=== PATIENT | female | born 1960 | race Caucasian/White ===

== ENCOUNTER → 2016-09-12 16:07 | Outpatient (CLI) | payer MEDICAID ==
[2016-06-24 12:18] VITALS: BMI 28.8
[~2016-09-12 16:07] MED LIST: ALTACE5 MG PO; ASPIRIN325 MG PO; BAYER ASPIRIN325 MG PO; BAYER CHEWABLE81 MG PO; GLIPIZIDE10 MG PO; GLUCOPHAGE1000 MG PO; GLUCOPHAGE500 MG PO; GLUCOTROL ER2.5 MG; HYDROCODON-ACE1 EAC7 PO; PLAVIX75 MG PO
== END | disposition home or self-care (01) ==
LOC: D.CT 16:00
DX: C25.0 Malignant neoplasm of head of pancreas (principal)

== ENCOUNTER → 2016-11-24 13:08 | Outpatient (CLI) | payer MEDICAID | END | disposition home or self-care (01) | LOC: D.CT 13:08 | DX: C25.0 Malignant neoplasm of head of pancreas (principal); D70.1 Agranulocytosis secondary to cancer chemotherapy ==